=== PATIENT | male | born 1965 | race Caucasian/White ===

== ENCOUNTER → 2017-08-04 | Day surgery (SDC) | payer BC ==
[~2017-08-04] VITALS: Ht 177.8 cm; Wt 100.0 kg
[~2017-08-04] MED LIST: BUPIVACAINE/EPINEPHRINE 0.25% 1:200,000 30 ML VIAL ONE; BUPIVACAINE/EPINEPHRINE 0.5% MPF 1:200,000 30 ML VIAL INFIL ONE; BUPIVACAINE/EPINEPHRINE 0.5% MPF 1:200,000 30 ML VIAL ONE; CEFAZOLIN 1000MG/55 ML D5W IV SCH; CEFAZOLIN 2000 MG/60 ML D5W IV SCH; FENTANYL CITRATE INJ 50 MCG/1 ML 2 ML VIAL IV ONE; FENTANYL CITRATE INJ 50 MCG/1 ML 2 ML VIAL ONE; LIDOCAINE HCL 1% 20 ML VIAL INFIL ONE; MIDAZOLAM HCL 1 MG/ML 2ML VIAL IV ONE; MIDAZOLAM HCL 1 MG/ML 2ML VIAL ONE; OMEGCAP2 PO; ONDA8TAB6 PO; OXYC-57 PO; OXYCODONE/ACETAMINOPHEN 5-325 TAB PO PRN; PATIENT'S HEIGHT AND/OR WEIGHT NEEDED SCH; PROC1TAB5 PO; SODIUM CHLORIDE 0.9% 1000ML 1,000 ML IV SCH; ZOLP5TAB6 PO; oxycodone PO; oxycontin
[2017-08-04 07:51] VITALS: BP 139/89; PULSE 84; TEMP 36.6; O2SAT 96; Ht 177.8 cm; Wt 100.0 kg
[2017-08-04 08:08] LABS: BASO % 0.2 %; BASO ABS # 0.03 K/uL (0-0.2); EOS % 0.8 %; HEMATOCRIT 45.5 % (42-52); IG% 0.4 %; LYMPH % 10.3 %; LYMPH ABS # 1.37 K/uL (1.2-3.4); MEAN CORPUSCULAR HEMOGLOBIN 28.6 pg (25-34); MEAN PLATELET VOLUME 9.5 fL (7.4-10.4); MONO % 8.4 %; NEUT % 79.9 %; PLATELET COUNT 236 K/uL (130-400); RED BLOOD COUNT 5.48 M/uL (4.7-6.1); WHITE BLOOD COUNT 13.29 K/uL (4.8-10.8)
[2017-08-04 08:11] LABS: COMPLETE YES; MEAN CORPUSCULAR HGB CONC 34.5 g/dl (32-36)
--- NOTE | 2017-08-04 08:37 | History and Physical ---
History & Physical Date Aug 04, 2017. (Lori Garcia, REYES) Chief Complaint rectal ca, need infusaport (Lori Garcia PA-C) History of Present Illness The patient is a 51 year old male with recent hx of rectal ca, who requires an infusaport for access for chemotherapy, seen today for infusaport insertion. Pt states feeling generally well, and is to begin chemo tx in 3 days from now. Denies CUADRA, fever, chills, chest pain, SOB,abd pain, N/V, rest pain, claudication , other complaints. (Lori Gacria, REYES) Vitals Vital Signs Past 12 Hours Date Time Temp Pulse Resp B/P (MAP) Pulse Ox O2 Delivery O2 Flow Rate FiO2 08/04/17 07:51 36.6 84 18 139/89 (106) 96 Room Air (Lori Garcia PA-C) Allergies Coded Allergies: No Known Allergies (Unverified , 08/04/17) PER MD ORDER SHEET (07/30/17) Home Medications Scheduled Ada-3 Fatty Acids (Fish Oil), 1 CAP PO BID Prochlorperazine Maleate (Compazine), 1 TAB PO Q6 Zolpidem Tartrate (Zolpidem Tartrate), 1 TAB PO HS [oxycodone], 5 MG PO DIRECTED Scheduled PRN Ondansetron Hcl (Zofran), 8 MG PO Q8 PRN for Nausea Surgical / Medical History Hx Cardiac Surgery: No Hx Abdominal Surgery: No Hx Cancer Surgery: No Hx Thoracic Surgery: No Hx Orthopedic: No Hx Urinary Tract Surgery: No HX Other Surgery: Yes (tonsils, cochlear implant left side) Past Medical/Surgical History: Other (hearing loss, cochlear implant) (Lori Garcia, REYES) Family History essentially neg per pt (Lori Gracia PA-C) Social History Smoking Status: Never Smoker Hx Tobacco Use In Past Year?: No Hx Alcohol Use - Type & Amnt: No Hx Substance Use -Type & Amnt: No (Lori Garcia, REYES) Review of Systems Constitutional: No chills, No fever, No malaise Skin: No change in color Eyes: No visual changes ENMT: No sore throat Respiratory: No cough, No hemoptysis, No short of breath Cardiovascular: No chest pain, No palpitations, No edema, No intermittent claudication Gastrointestinal: + problem reported (rectal pain, chronic), No abdominal pain , No nausea, No vomiting Neurologic: + dizziness, + headache, + numbness, + tingling (Lori Garcia , SHARADC) Physical Exam Constitutional: General Apperance: heathly-appearing, well-nourished, well-developed Level of Distress: NAD Ambulation: ambulating normally Psychiatric: Mental Status: active & alert, normal mood, normal affect Orientation: oriented except where noted, to time, to place, to person Memory: recent memory normal, remote memory normal Head: normocephalic, atraumatic Eyes: EOM: EOMI ENMT: normal ENT inspection, hearing grossly normal Neck: supple, trachea midline Lungs: Respiratory effort: no dyspnea Auscultation: breath sounds normal, no wheezing Cardiovascular: Apical Impulse: not displaced Heart Auscultation: RRR, no murmurs, no rubs Peripheral Pulses: Pulses: full and equal, in all extremities except if noted Bruits: none appreciated Carotid Pulse: normal on the left, normal on the right Brachial Pulses: normal on the left, normal on the right Radial Pulse: normal on the left, normal on the right Femoral Pulse: normal on the left, normal on the right Posterior Tibialis Pulse: normal on the left, normal on the right Dorsalis Pedis Pulse: normal on the left, normal on the right Abdomen: Bowel Sounds: normal Inspection & Palpation: soft, non-distended, no tenderness, guarding & rebound Musculoskeletal: normal strength (5/5 throughout), normal tone Extremities: Upper Right: no cyanosis, no edema, no varicosities Upper Left: no cyanosis, no edema, no varicosities Lower Right: no cyanosis, no edema, no varicosities Lower Left: no cyanosis, no edema, no varicosities Neurologic: Cranial Nerves: grossly intact Sensation: grossly intact (Lori Garcia, PAIvoryC) Assessment and Plan ASSESSMENT and PLAN: Rectal ca Pt admitted for infusaport insertion today. Procedure, risks, benefits, and alternatives discussed with pt, he expresses understanding and agreement. (Lori Garcia, PAIvoryC) Patient was seen, examined, and chart reviewed. Agree with exam and treatment plan of the Vascular PA. Patient for infusaport insertion for rectal ca. I have discussed the risks options and benefits of the procedure with the patient. The patient understands the risks options and benefits and agrees to the procedure I have examined the patient, reviewed the History & Physical and in the interval since the performance of the History & Physical I have noted the following changes of clinical significance: No changes noted. (Hiro Singh M.D.)
[2017-08-04 08:43] LABS: PARTIAL THROMBOPLASTIN RATIO 1.3; PROTHROMBIN TIME (PATIENT) 10.8 SECONDS (9.0-12.0)
[2017-08-04 11:42] VITALS: BP 139/89; PULSE 84; TEMP 36.6; O2SAT 96
--- NOTE | 2017-08-04 11:55 | Procedure Note ---
Pre-Mod Sedation Assessment General Date of Moderate Sedation: Aug 04, 2017. Vital Signs: Vital Signs Past 12 Hours Date Time Temp Pulse Resp B/P (MAP) Pulse Ox O2 Delivery O2 Flow Rate FiO2 08/04/17 11:42 36.6 84 18 139/89 96 Room Air 08/04/17 07:51 36.6 84 18 139/89 (106) 96 Room Air Pre-Sedation Airway Assessment Oral Cavity: WNL Short Thick Neck: No Hx of Sleep Apnea: No Smoking Status: Never Smoker Mallampati Classification: Class I ASA Classification: Class II Notes The planned sedation has been discussed with the patient and consent obtained. I have identified the patient, determined the appropriateness of sedation and have assessed the patient immediately prior to the procedure. All medicine(s) and interventions are by my order.
--- NOTE | 2017-08-04 12:36 | Procedure Note ---
Post-Moderate Sedation Plan General Date of Moderate Sedation Aug 04, 2017. Vital Signs: Vital Signs Past 12 Hours Date Time Temp Pulse Resp B/P (MAP) Pulse Ox O2 Delivery O2 Flow Rate FiO2 08/04/17 11:42 36.6 84 18 139/89 96 Room Air 08/04/17 07:51 36.6 84 18 139/89 (106) 96 Room Air Review - Discharge Plan Post Moderate Sedation Plan: On clinical assessment, the patient appears to have tolerated the conscious sedation without complications. Patient is recovering as anticipated. Patient will continue to be monitored by nursing and may be discharged when conscious sedation discharge criteria are met.
--- NOTE | 2017-08-04 12:36 | [facility] Post Operative Brief Note ---
Immediate Operative Summary Operative Date Aug 04, 2017. Pre-Operative Diagnosis Rectal Cancer Post-Operative Diagnosis Same Procedure(s) Performed Insertion OF Infusaport, Right Jugular Vein Approach Ultrasound Localization of Right Jugular Vein Fluoroscopy for Positioning Moderate Sedation [id number] Surgeon Samantha Signal Tester Surgeon(s) None Estimated Blood Loss 5 Findings flushes easily, tip in distal SVC Specimens None Anesthesia local with sedation Complication(s) None Disposition
--- NOTE | 2017-08-04 12:39 | [facility] Operative Report ---
Operative Report Operative Date Aug 04, 2017. Pre-Operative Diagnosis Rectal Cancer Post-Operative Diagnosis Same Procedure(s) Performed Insertion OF Infusaport, Right Jugular Vein Approach Ultrasound Localization of Right Jugular Vein Fluoroscopy for Positioning Moderate Sedation [id number] Surgeon Samantha Label Press Operator Surgeon(s) None Estimated Blood Loss 5 Findings flushes easily, tip in distal SVC Specimens None Anesthesia local with sedation Complication(s) None Disposition Indications This is a 51-year-old male with rectal carcinoma. He is in need of a port for chemotherapy. An [id number] was recommended. He understood the risks options and benefits and agreed to go ahead with this procedure. Description of Procedure Patient was takent to the angio suite and placed in the supine position. The right side of the neck and chest wall were prepped and draped in a sterile manner. Local anesthesia was then administered to the appropriate areas of the neck and chest wall. A transverse incision was made below the clavicle on the chest wall and an inferior pocket was make. Bleeding was controlled using cautery. Ultrasound was then used to locate the right internal jugular vein. The vein compressed easily, had no filing defects, and was patent. The vein was then punctured under direct ultrasound imaging. A guidewire was then passed centrally under fluoroscopic imaging. The port catheter was then passed from the pocket incision to the puncture site in the neck using the tunneling device. The peel away sheath was inserted. The catheter was then beveled at the tip and inserted through the peel away sheath. The tip was then positioned in the distal SCV. It was then attached to the port and the catheter clamp applied. The port was then placed in the pocket and sutured to the chest fascia using prolene suture. The puncture site was then closed using a 4-0 Vicryl subcuticular suture. The chest incision was closed using a 3-0 Vicryl suture for the subcutaneous layer and a 4-0 Vicryl subcuticular stitch for the skin layer. Dermabond was used for a dressing on the puncture site and the incision. The port aspirated and flushed easily and was then flushed with heparinized saline. The patient left the angio suite in good condition and tolerated the procedure well. I attest to the content of the Intraoperative Record and any orders documented therein. Any exceptions are noted below.
--- NOTE | 2017-08-04 12:43 | Discharge Instructions ---
Discharge Instructions Date of Service Aug 04, 2017. Visit Reason for Visit: Rectal Cancer Discharge Discharge Diagnosis / Problem: Rectal cancer, insertion of infusaport Discharge Goals Goal(s): Therapeutic intervention Activity Recommendations Activity Limitations: per Instructions/Follow-up section Exercise/Sports Limitations: rest today Shower/Bathe: tomorrow Driving or Machine Use: resume 1 day after discharge Anesthesia . Post Anesthesia Instructions: If you have had General Anesthesia or IV Sedation: * Do not drive today. * Resume driving when surgeon permits. * Do not make important decisions or sign legal documents today. * Call surgeon for: 1. Temperature elevations greater than 101 degrees F. 2. Uncontrollable pain. 3. Excessive bleeding. 4. Persistent nausea and vomiting. 5. Medication intolerance (nausea, vomiting or rash). * For nausea and vomiting use only clear liquids such as: tea, soda, bouillon until nausea subsides, then gradually increase diet as tolerated. * If you have any concerns or questions, call your surgeon's office. If physician is unavailable and it is an emergency, call 911 or go to the nearest emergency room. . Instructions / Follow-Up Instructions / Follow-Up Call [phone] to schedule a follow up appointment if one not already scheduled. ACTIVITY RECOMMENDATIONS: See Above SPECIAL CARE INSTRUCTIONS: Call your doctor if: * Temperature above 101 degrees * Pain not relieved by pain medicine ordered * There is increased drainage or redness from any incision * You have any unanswered questions or concerns. Diet Recommendations Recommended Home Diet: resume previous diet Procedures Procedures Performed: Insertion OF Infusaport, Right Jugular Vein Approach Ultrasound Localization of Right Jugular Vein Fluoroscopy for Positioning Moderate Sedation [id number] Pending Studies Studies pending at discharge: no Medical Emergencies . Who to Call and When: Medical Emergencies: If at any time you feel your situation is an emergency, please call 911 immediately. . Non-Emergent Contact Non-Emergency issues call your: Surgeon . . "Provider Documentation" section prepared by Hiro Singh. .
[2017-08-04 12:50] VITALS: BP 138/80; PULSE 75; TEMP 37.2; O2SAT 95
[2017-08-04 13:20] VITALS: BP 128/94; PULSE 83; TEMP 37.2; O2SAT 96
== END | disposition home or self-care (01) ==
LOC: C.ACU 07:16
PROVIDERS: ATTEND Surgery Vascular Surgery
DX: C20 Malignant neoplasm of rectum (principal); Z79.899 Other long term (current) drug therapy